=== PATIENT | female | born 1970 | race Caucasian/White ===

== ENCOUNTER 2016-04-23 14:43 | Emergency (ER) | payer OTHER ==
[2016-04-23 14:53] VITALS: BP 143/80
--- NOTE | 2016-04-23 15:04 | UC ---
Throat Pain/Nasal [place] HPI - HPI Summary HPI Summary: The patient comes in today for: 1. Sore throat: Onset: 6 days ago. Palliative/provocative: Cold liquid makes it better. Hurts to swallow. Quality: Aching. Region: Posterior pharynx. Severity: 6/10 Time: Constant. Associated symptoms: FEver: None. Rhinitis: In AM--clear Cough: Periodically. Non-productive. Travel: She will be heading back to [place] 4 days. * - History of Current Complaint Chief Complaint: UCRespiratory Stated Complaint: SORE THROAT,EAR PAIN,COUGH Time Seen by Provider: 04/23/16 14:58 Hx Obtained From: Patient Hx Last Menstrual Period: <1 WEEK AGO ?: No - Allergies/Home Medications Allergies/Adverse Reactions: Allergies Allergy/AdvReac Type Severity Reaction Status Date / Time Eggs or Egg-derived Products Allergy Severe Rash Verified 04/23/16 14:53 PMH/Surg Hx/FS Hx/Imm Hx Previously Healthy: Yes Endocrine History Of: Denies: Diabetes, Thyroid Disease, Hyperthyroidism, Hypothyroidism, Dyslipidemia Cardiovascular History Of: Denies: Cardiac Disorders, Hypertension, Pacemaker/ICD, Myocardial Infarction , Congestive Heart Failure, Atrial Fibrillation, Deep Vein Thrombosis, Bleeding Disorders Respiratory History Of: Reports: Asthma Denies: COPD, Bronchitis, Pneumonia, Pulmonary Embolism GI/ History Of: Denies: Gastroesophageal Reflux, Ulcer, Gastrointestinal Bleed, Gall Bladder Disease, Kidney Stones, Diverticulitis, Renal Disease, Urosepsis Neurological History Of: Denies: TIA, CVA, Dementia, Seizures, Migraine Psychological History Of: Denies: Anxiety, Depression, Bipolar Disorder, Schizophrenia, Post Traumatic Stress Disorder Cancer History Of: Denies: Lung Cancer, Colorectal Cancer, Breast Cancer, Prostate Cancer, Cervical Cancer Other History Of: Negative For: HIV, Hepatitis B, Hepatitis C, Anticoagulant Therapy - Surgical History Surgical History: None - Family History Known Family History: Positive: Cardiac Disease, Hypertension - Social History Occupation: Employed Full-time Alcohol Use: None Substance Use Type: None Smoking Status (MU): Never Smoked Tobacco Review of Systems Constitutional: Negative Skin: Negative Eyes: Negative ENT: Sore Throat Respiratory: Negative Cardiovascular: Negative Gastrointestinal: Negative Genitourinary: Negative All Other Systems Reviewed And Are Negative: Yes Physical Exam Triage Information Reviewed: Yes Appearance: Well-Appearing, No Pain Distress, Well-Nourished Vital Signs: Initial Vital Signs Temp 97.5 F 04/23/16 14:49 Pulse 76 04/23/16 14:49 Resp 16 04/23/16 14:49 BP 143/80 04/23/16 14:49 Pulse Ox 100 04/23/16 14:49 Vital Signs Reviewed: Yes Eyes: Positive: Conjunctiva Clear. Negative: Discharge ENT: Positive: Hearing grossly normal, Other: - Right ear: Cerumen impaction in place. After removal TM ross and translucent. No canal erythema or edema, but there is slight tenderness to pressure. Left ear: TM ross and translucent; no canal erythema or edema.. Negative: Pharyngeal erythema, Nasal congestion, Nasal drainage, TM bulging, TM dull, TM red, Tonsillar swelling, Tonsillar exudate Dental: Negative: Gross Decay/Caries @, Dental Fracture @ Neck: Positive: Supple, Nontender, No Lymphadenopathy. Negative: Nuchal Rigidity Respiratory: Positive: Chest non-tender, Lungs clear, No respiratory distress, No accessory muscle use. Negative: Crackles, Wheezing Cardiovascular: Positive: RRR, No Murmur Abdomen Description: Positive: Nontender, No Organomegaly, Soft. Negative: Distended, Guarding Musculoskeletal: Positive: Strength Intact, ROM Intact Neurological: Positive: Alert, Muscle Tone Normal Psychological: Positive: Age Appropriate Behavior, Consolable Skin: Negative: rashes, breakdown Diagnostics - Laboratory Diagnostic Studies Completed/Ordered: Strep test: (-). Throat Pain/Nasal Course/Dx - Course Course Of Treatment: Right ear irrigation. - Differential Dx/Diagnosis Provider Diagnoses: Early otitis externa (right). Upper respiratory infection/ pharyngitis Discharge - Discharge Plan Condition: Stable Disposition: HOME Patient Education Materials: Pharyngitis (ED), Otitis Externa (ED) Additional Instructions: Please see your primary care provider when you are back in the [place] area. If you get worse between now and then, please be seen sooner.
== END 2016-04-23 16:05 | disposition home or self-care (01) ==
LOC: UCEAST 14:43
DX: H60.91 Unspecified otitis externa, right ear (principal); J02.9 Acute pharyngitis, unspecified; H61.21 Impacted cerumen, right ear
CPT/HCPCS: 87651; 99202; G0463